=== PATIENT | male | born 1985 | race Caucasian/White ===

== ENCOUNTER → 2018-06-08 | Day surgery (SDC) | payer MEDICARE, OTHER ==
[2018-06-02 10:27] VITALS: BMI 26.6
[~2018-06-08] MED LIST: ALPRAZolam 0.25 MG TAB PO PRN; ALPRAZolam 0.5 MG TAB PO PRN; ASPIRIN 325 MG TAB PO STA; ATORVASTATIN 80 MG TAB PO STA; HEPARIN SODIUM 1,000 UN/ML (10ML VL) IV ONE; IOPAMIDOL-370 125ML BTL INJ ONE; LIDOCAINE 1% INJ 10MG/ML (20 ML MDV) SQ ONE; MIDAZOLAM 2 MG/2 ML VIAL IVP ONE; NITROGLYCERIN SL TABS 0.4 MG TAB SUBLINGUAL PRN; RX INFO: IV CONTRAST WAS GIVEN 1 EACH MISC MISCELLANE PRN; SODIUM CHLORIDE 0.9% 1,000 ML IV SCH; SODIUM CHLORIDE 0.9% 1,000 ML in EMPTY BAG 1 BAG IV ONE; VERAPAMIL SYRINGE (5 MG/10 ML) INTRAARTER ONE; fentaNYL (PF) 50 MCG/ML 2 ML AMP IVP ONE
[2018-06-08 11:15] VITALS: RESP 18; TEMP 97.7
[2018-06-08 11:18] LABS: Basophils # (A) 0.1 k/uL (0-0.2); Basophils % (A) 1 %; Eosinophils # (A) 0.6 k/uL (0-0.7); Eosinophils % (A) 8 %; HCT 49.7 % (39.0-53.0); HGB 16.6 gm/dL (13.0-17.5); Lymphocytes # (A) 2.1 k/uL (1.0-4.8); Lymphocytes % (A) 30 %; MCH 31.3 pg (25.0-35.0); MCHC 33.4 g/dL (31.0-37.0); MCV 93.8 fL (80.0-100.0); Mean Platelet Volume 8.2; Monocytes # (A) 0.4 k/uL (0-1.0); Monocytes % (A) 5 %; Neutrophils # (A) 3.8 k/uL (1.3-7.7); Neutrophils % (A) 54 %; Platelet Count 263 k/uL (150-450); RBC 5.29 m/uL (4.30-5.90); RDW 14.6 % (11.5-15.5)
[2018-06-08 11:27] LABS: Anion Gap 8 mmol/L; Blood Urea Nitrogen 9 mg/dL (9-20); Calcium 9.6 mg/dL (8.4-10.2); Carbon Dioxide 24 mmol/L (22-30); Chloride 109 mmol/L (98-107); Glucose 90 mg/dL (74-99); Potassium 4.4 mmol/L (3.5-5.1); Sodium 141 mmol/L (137-145)
--- NOTE | 2018-06-08 13:23 | P.CARDCATH ---
Date of Procedure: 06/08/18 Preoperative Diagnosis: Chest pain, history of MT, positive stress test Postoperative Diagnosis: Normal coronary arteries, preserved LV function Description of Procedure: HISTORY: This is a 33-year-old gentleman who recently came to my office with complaints of chest pain. He gives history of having a previous myocardial infarctions. 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 Because of ongoing chest pains and abnormal stress test and history of ischemic or disease, patient is advised to have a cardiac catheterization for definitive diagnosis CONSENT:I have discussed the risks, benefits and alternative therapies for the above-mentioned procedure and for both sedation/analgesia as well as necessary blood product administration, if indicated, as they pertain to this patient. The patient has indicated understanding and acceptance of the risks and procedures discussed. PROCEDURE: Patient was brought to the lab in a fasting state. Patient was given some IV sedation. The right wrist is infiltrated with lidocaine and right radial artery was entered using Seldinger technique. A 6-Lith[place]ian catheter was left in place and selective coronary arteriography and left ventriculography was performed. Patient tolerated the procedure well. TR band was applied for hemostasis. No immediate complications were noted and patient was transferred to [facility] in a stable condition Conscious Sedation: Versed 1 mg Fentanyl 50 g Duration 27 minutes HEMODYNAMICS:. The aortic pressure is about 110/70. The left ventricle end- diastolic pressure was about 6. There was no gradient across the aortic valve. SELECTIVE CORONARY ARTERIOGRAPHY: LEFT MAIN: This is a normal length and free of any occlusive disease THE LEFT ANTERIOR DESCENDING CORONARY ARTERY:. This is a good caliber vessel giving rise to good-sized first diagonal branch and several septal branches. The LAD and branches are free of occlusive disease. THE LEFT CIRCUMFLEX AND IS CORONARY ARTERY: This is a good caliber vessel giving rise to good-sized 2 OM branches and AV groove segment. The circumflex coronary artery and its branches are free of occlusive disease THE RIGHT CORONARY ARTERY:. This is a good caliber vessel and codominant giving rise to PDA and PLV branches. The right coronary artery and its branches are free of any significant occlusive disease LEFT VENTRICULOGRAPHY:. This was performed in 30 right and probably projection. Significant ectopy noted in the beginning. Overall left ventricular function appears to be preserved. FINAL IMPRESSION: Normal coronary arteries. Normal LV function PLAN:. Risk factor modification and medical therapy PROGNOSIS:. Good
[2018-06-08 16:00] VITALS: BP 114/74; PULSE 68
== END ==
LOC: CATHCVL 10:35
PROVIDERS: ATTEND Internal Medicine Cardiovascular Disease
DX: R07.9 Chest pain, unspecified (principal); R94.39 Abnormal result of other cardiovascular function study; I49.3 Ventricular premature depolarization; I25.2 Old myocardial infarction; Z86.79 Personal history of other diseases of the circulatory system; E78.00 Pure hypercholesterolemia, unspecified; F17.200 Nicotine dependence, unspecified, uncomplicated; Z79.1 Long term (current) use of non-steroidal anti-inflammatories (NSAID); Z79.51 Long term (current) use of inhaled steroids; Z79.899 Other long term (current) drug therapy
CPT/HCPCS: 93458; 80048; 85025; C1769 ×2; C1894; J2250; J2001; J3010; J1644; Q9967

== ENCOUNTER → 2019-09-20 | Outpatient (CLI) | payer OTHER ==
--- NOTE | 2019-09-20 09:35 | CT ---
EXAMINATION TYPE: CT chest wo/w con DATE OF EXAM: 09/20/2019 COMPARISON: CT abdomen 02/21/2014 HISTORY: 34-year-old male R91.1, Solitary pulmonary nodule TECHNIQUE: Contiguous axial scanning of the chest before and after the administration of 100 mL of Is ovue 300. Coronal/sagittal reconstructions performed. CT DLP: 649.70mGycm. Automatic exposure control utilized for a dose reduction. FINDINGS: Heart normal size without pericardial effusion. Ectatic aortic root at 3.9 cm. Aorta otherwise normal caliber with conventional arch vessel branching anatomy. Scattered nonenlarged mediastinal lymph nodes are present. Prominent but nonenlarged 5 mm right hilar lymph node and 6 mm left hilar lymph node. There is minimal biapical pleural parenchymal scarring and strandy atelectasis along the anterior tracy g bases. Focal 5 mm nodular density posterior left lower lobe, axial image 51 and coronal series 7 im age 72. There is some adjacent linear density. Possible nodular scarring, new from 02/21/2014. No consolidation or pleural effusion. Small hiatal hernia. Bones: No osseous destructive process. IMPRESSION: 1. Mild biapical pleural-parenchymal scarring. 2. A 5 mm area of nodularity posterior left lower lobe. Given some adjacent linear density, this coul d represent an area of nodular scarring, new from 02/21/2014. A 6-12 month follow up exam can be perfo rmed to reassess. 3. Small hiatal hernia.
== END | disposition home or self-care (01) ==
LOC: RADCTMAIN 08:46
PROVIDERS: ATTEND Nurse Practitioner Acute Care
DX: J98.4 Other disorders of lung (principal); R91.8 Other nonspecific abnormal finding of lung field
CPT/HCPCS: 71270; Q9967

== ENCOUNTER → 2020-09-14 | Outpatient (CLI) | payer OTHER ==
--- NOTE | 2020-09-14 12:57 | CT ---
EXAMINATION TYPE: CT chest wo con DATE OF EXAM: 09/14/2020 COMPARISON: 09/20/2019 HISTORY: f/u nodules CT DLP: 337.[address] of the chest was performed with lung and mediastinal window settings submitted. The la ck of contrast limits evaluation of the vascular, mediastinal and parenchymal structures including th e upper abdomen. LUNGS: The lungs are clear and free of infiltrate. No atelectasis. Linear parenchymal scarring left lower lobe without evidence for nodule. Mild biapical parenchymal scarring. No pulmonary nodule or ma ss is detected. No pleural effusion. No CT evidence of interstitial lung disease. MEDIASTINUM/RENEA: Thoracic aorta is of normal caliber with limited evaluation given lack of contrast . The heart is not enlarged. No evidence for mediastinal mass. No lymph nodes greater than 1cm. UPPER ABDOMEN: No significant abnormality is seen. OTHER: No significant other abnormality. IMPRESSION: 1. Linear parenchymal scarring left lower lobe without evidence for nodule.
== END | disposition home or self-care (01) ==
LOC: RADCTMAIN 12:31
DX: R91.1 Solitary pulmonary nodule (principal)
CPT/HCPCS: 71250